=== PATIENT | female | born 2000 | race Caucasian/White ===

== ENCOUNTER → 2024-04-10 | Outpatient (REF) | LOC: M EMP 10:14 | PROVIDERS: ATTEND Family Medicine | DX: Z20.822 Contact with and (suspected) exposure to COVID-19 (principal) ==

== ENCOUNTER → 2025-03-27 | Outpatient (REF) ==
[~2025-03-27] MED LIST: ISIB1TAB PO
== END ==
LOC: M EMP 12:21
PROVIDERS: ATTEND Family Medicine
DX: Z11.52 Encounter for screening for COVID-19 (principal)

== ENCOUNTER 2025-03-28 19:13 | Emergency (ER) | payer BC ==
[~2025-03-28] VITALS: Ht 167.6 cm; Wt 80.0 kg
[2025-03-28] MEDS ORDERED: ISIB1TAB PO (19:25)
[2025-03-28 22:41] VITALS: BP 125/79; TEMP 97.9; O2SAT 98
== END 2025-03-28 22:50 | disposition home or self-care (01) ==
LOC: M ED 19:13
DX: S76.012A Strain of muscle, fascia and tendon of left hip, initial encounter (principal); X58.XXXA Exposure to other specified factors, initial encounter; Y92.9 Unspecified place or not applicable; Y93.9 Activity, unspecified; Y99.9 Unspecified external cause status